=== PATIENT | female | born 1975 | race Two or more races ===

== ENCOUNTER 2024-04-15 16:00 | Emergency (ER) | payer OTHER ==
[~2024-04-15] VITALS: Ht 160 cm; Wt 77.1 kg
[2024-04-15] MEDS ORDERED: MORPHINE SULFATE 4 MG/1 ML DISP.SYRIN ONE (16:32)
[2024-04-15] MEDS ORDERED: METOCLOPRAMIDE HCL 10 MG/2 ML VIAL ONE (16:32)
[2024-04-15] MEDS: MORPHINE SULFATE 4 MG/1 ML DISP.SYRIN IV ONE (16:40)
[2024-04-15] MEDS: METOCLOPRAMIDE HCL 10 MG/2 ML VIAL IV ONE (16:40)
[2024-04-15] MEDS ORDERED: ONDANSETRON 4 MG/2 ML VIAL ONE (17:52)
[2024-04-15] MEDS: ONDANSETRON 4 MG/2 ML VIAL IV ONE (18:02)
[2024-04-15] MEDS ORDERED: MIDAZOLAM HCL 2 MG/2 ML VIAL ONE (18:04)
[2024-04-15] MEDS: MIDAZOLAM HCL 2 MG/2 ML VIAL IV ONE (18:12)
[2024-04-15] MEDS ORDERED: KETAMINE HCL 500 MG/5 ML VIAL ONE (18:15)
[2024-04-15] MEDS ORDERED: HYDR-3972 PO (18:43)
[2024-04-15] MEDS: KETAMINE HCL 500 MG/10 ML INJ IV ONE (18:52)
[2024-04-15 22:48] VITALS: BP 127/90; TEMP 98.7; O2SAT 98
[2024-04-16] MEDS ORDERED: HYDR-3980 PO (11:04)
== END 2024-04-15 20:00 | disposition home or self-care (01) ==
LOC: ER 16:00
DX: S82.52XA Displaced fracture of medial malleolus of left tibia, initial encounter for closed fracture (principal); R60.0 Localized edema; W18.30XA Fall on same level, unspecified, initial encounter; Y93.89 Activity, other specified; Y92.830 Public park as the place of occurrence of the external cause; Y99.8 Other external cause status
CPT/HCPCS: 27762; 73600; 96374; 96375; 99284; J2250; J2270; J2405; J2765; J3490; A4606; A4663